=== PATIENT | male | born 1980 | race Two or more races ===

== ENCOUNTER 2020-06-06 11:24 | Emergency (ER) | payer OTHER ==
[~2020-06-06] VITALS: Ht 185.4 cm; Wt 139.0 kg
[2020-06-06 12:40] VITALS: BP 141/73
[2020-06-06] MEDS ORDERED: HYDROcodone/APAP 5/325MG 1 TAB TABLET PO ONE (13:00)
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
[2020-06-06] MEDS ORDERED: NAPR-514 PO (13:50)
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
== END 2020-06-06 13:59 | disposition home or self-care (01) ==
LOC: ER 11:24
DX: S20.211A Contusion of right front wall of thorax, initial encounter (principal); V43.52XA Car driver injured in collision with other type car in traffic accident, initial encounter; Y93.I9 Activity, other involving external motion; Y92.488 Other paved roadways as the place of occurrence of the external cause; Y99.8 Other external cause status
CPT/HCPCS: 71101; 99283